=== PATIENT | male | born 1960 | race Caucasian/White ===

== ENCOUNTER 2017-02-02 17:04 | Emergency (ER) | payer OTHER ==
[~2017-02-02] VITALS: Ht 177.8 cm; Wt 89.7 kg
[2017-02-02 18:18] LABS: HEMATOCRIT 42.2 % (38.0-50.0); MCH 27.7 PG (29.0-34.0); MCHC 32.5 G/DL (30.0-36.0); MCV 85.4 FL (86-99); MEAN PLAT.VOLUME 10.3 uM^3 (9.0-12.4); PLATELET COUNT 282 K/uL (156-360); RBC DIS.WIDTH-CV 13.3 % (11.8-14.6); RBC DIS.WIDTH-SD 41.5 % (39-53); RED BLOOD COUNT 4.94 M/uL (4.00-5.50); WHITE BLOOD COUNT 8.1 K/uL (4.1-10.2)
[2017-02-02 18:29] LABS: CHLORIDE 106 mEq/L (99-109); SODIUM 139 mEq/L (136-147)
[2017-02-02 18:31] LABS: GLUCOSE 87 mg/dL (70-99)
[2017-02-02 18:32] LABS: ANION GAP 9 MEQ/L (2-14)
[2017-02-02 18:35] LABS: GFR ESTIMATE (CALCULATED) > 59 mL/min/
[2017-02-02 18:36] LABS: UREA NITROGEN (BUN) 16 mg/dL (9-23)
[2017-02-02] MEDS ORDERED: HYDROCHLOROTH12.5 M3 PO (19:08)
[2017-02-02 19:34] VITALS: BP 158/104
== END 2017-02-02 19:34 | disposition home or self-care (01) ==
LOC: EME 17:04
PROVIDERS: Physician Assistant Medical
DX: I10 Essential (primary) hypertension (principal); Z76.0 Encounter for issue of repeat prescription; Z87.891 Personal history of nicotine dependence
CPT/HCPCS: 80048; 85027; 99281; 99284